=== PATIENT | female | born 1965 | race Caucasian/White ===

== ENCOUNTER → 2021-12-21 07:55 | Outpatient (CLI) | payer OTHER, SELFPAY ==
--- NOTE | 2021-12-21 08:01 | DI.MG.S_ITS ---
BILATERAL DIGITAL SCREENING MAMMOGRAM 3D/2D WITH CAD: 12/21/2021 CLINICAL: Routine screening. Family history of breast cancer. Comparison is made to exam dated: 08/24/2015, mammogram [facility], 09/06/2004 mammogram - [facility]. The tissue of both breasts is heterogeneously dense. This may lower the sensitivity of mammography. Current study was also evaluated with a Computer Aided Detection (CAD) system. No significant masses, calcifications, or other findings are seen in either breast. There has been no significant interval change. IMPRESSION: NEGATIVE There is no mammographic evidence of malignancy. A 1 year screening mammogram is recommended. Based on the Tyrer Cuzick model (a risk assessment model) the patient's lifetime risk is 10.0% and her 10 year risk is 3.7%. According to the ACR, ACS, and NCCN guidelines, an annual breast MRI exam along with mammogram is recommended if the patient's lifetime risk is 20% or greater. This exam was interpreted at Station ID: [id number]. NOTE: For mammograms, a report in lay terms will be sent to the patient. Approximately 15% of breast malignancies will not be visualized mammographically. In the management of a palpable breast mass, a negative mammogram must not discourage biopsy of a clinically suspicious lesion. Electronically Signed By: Thomas Navarro M.D. slc/:12/27/2021 14:25:02 letter sent: Normal Exam ACR BI-RADS Category 1: Negative 3341F
== END ==
PROVIDERS: Family Provider Family Medicine; PCP Family Medicine; Referring Provider Family Medicine; Visit Provider Family Medicine
DX: Z12.31 Encounter for screening mammogram for malignant neoplasm of breast (principal); Z80.3 Family history of malignant neoplasm of breast
CPT/HCPCS: 77063; 77067

== ENCOUNTER → 2022-12-05 16:44 | Outpatient (CLI) | payer OTHER, SELFPAY ==
--- NOTE | 2022-12-05 | DI.US.S_ITS ---
PROCEDURE: US ABDOMEN COMPLETE INDICATIONS: ELEVATED LFT'S TECHNIQUE: Real-time scanning was performed of the abdominal and retroperitoneal organs, with image documentation. COMPARISON: None. FINDINGS: Liver: Liver is normal in size and homogeneous in echotexture. Gallbladder: Unremarkable. Wall thickness is normal measuring 1.6 mm. Biliary ducts: Intrahepatic bile ducts are non-dilated. Extrahepatic bile duct caliber measures 0.6 mm. Normal is 6-7 mm or less in diameter, or 10 mm or less post-cholecystectomy. Pancreas: Visualized portions of the pancreas are sonographically normal. Spleen: Spleen is normal in size and homogeneous in echotexture. Kidneys: Kidneys are normal in size and echotexture. Right kidney measures 9.8 cm long; left kidney measures 10.5 cm long. No hydronephrosis or nephrolithiasis. No solid masses. Aorta: Visualized aorta is normal in caliber at less than 3 cm. Iliacs: Proximal common iliac arteries are normal in caliber at less than 2.5 cm. IVC: Intrahepatic inferior vena cava is patent. Miscellaneous: No free abdominal fluid. IMPRESSION: Liver is unremarkable. Dictated by: Joann Huynh M.D. on 12/06/2022 at 14:32 Approved by: Joann Huynh M.D. on 12/06/2022 at 14:33
== END ==
PROVIDERS: Family Provider Family Medicine; PCP Family Medicine; Referring Provider Family Medicine; Visit Provider Family Medicine
DX: R74.8 Abnormal levels of other serum enzymes (principal)
CPT/HCPCS: 76700

== ENCOUNTER → 2023-07-11 07:43 | Outpatient (CLI) | payer OTHER, SELFPAY ==
--- NOTE | 2023-07-11 | DI.MG.S_ITS ---
BILATERAL DIGITAL SCREENING MAMMOGRAM 3D/2D WITH CAD: 07/11/2023 CLINICAL: Routine screening. Comparison is made to exams dated: 12/21/2021 mammogram and 09/06/2004 mammogram - [facility]. Both breasts are heterogeneously dense, which may obscure small masses (category c / 51-75% glandular tissue). Current study was also evaluated with a Computer Aided Detection (CAD) system. There are benign vascular calcifications in both breasts. No significant masses, calcifications, or other findings are seen in either breast. There has been no significant interval change. IMPRESSION: BENIGN There is no mammographic evidence of malignancy. A 1 year screening mammogram is recommended. Based on the Tyrer Cuzick model (a risk assessment model) the patient's lifetime risk is 9.8% and her 10 year risk is 3.8%. According to the ACR, ACS, and NCCN guidelines, an annual breast MRI exam along with mammogram is recommended if the patient's lifetime risk is 20% or greater. This exam was interpreted at Station ID: [id number]. NOTE: For mammograms, a report in lay terms will be sent to the patient. Approximately 15% of breast malignancies will not be visualized mammographically. In the management of a palpable breast mass, a negative mammogram must not discourage biopsy of a clinically suspicious lesion. Electronically Signed By: Bernie bolaños/anisha:07/11/2023 16:22:49 letter sent: Normal Exam ACR BI-RADS Category 2: Benign Finding(s) 3342F
== END ==
PROVIDERS: Family Provider Family Medicine; PCP Family Medicine; Referring Provider Family Medicine; Visit Provider Family Medicine
DX: Z12.31 Encounter for screening mammogram for malignant neoplasm of breast (principal); R92.333 Mammographic heterogeneous density, bilateral breasts
CPT/HCPCS: 77063; 77067

== ENCOUNTER 2025-03-03 07:09 | Day surgery (SDC) | payer OTHER, SELFPAY ==
--- NOTE | 2025-03-03 | PATH_ITS ---
[facility] Accession Number: [id number] No. of containers..03 Tissue . 01 Material submitted: . PART A: colon - COLON, DESCENDING POLYP PART B: colon - SIGMOID POLYP X3 PART C: rectosigmoid junction - POLYP RECTAL SIGMOID JUNCTION . 01 Diagnosis: A. DESCENDING COLON POLYP: Tubular adenoma. . B. SIGMOID COLON POLYPS: Hyperplastic polyps (3 polyps removed). . C. RECTOSIGMOID JUNCTION POLYP: Traditional serrated adenoma. Negative for high-grade dysplasia or malignancy. [facility] 03/12/2025 1146 Local . 01 Electronically signed: . Jad Carrillo MD, PhD, Pathologist NPI- [id number] . 01 Gross description: . Received are three formalin-filled containers each lableed with the patient's name. . A. In a container labeled descending colon polyp, is one fragment of osorio, soft tissue which measures 0.3 x0.3 x 0.2 cm. The specimen is totally submitted in cassette A1. B. In a container labeled sigmoid polyp x3, are three fragments of osorio, soft tissue which range in size from 0.2 x 0.2 x 0.2 cm to 0.4 x 0.3 x 0.2 cm. All fragments are totally submitted in cassette B1. C. In a container labeled polyp rectal sigmoid junction, is one fragment of osorio, soft tissue which measures 0.5 x 0.4 x 0.3 cm. The specimen is totally submitted in cassette C1. ([id number]) /[facility] 03/10/2025 0856 Local . 01 Pathologist provided ICD-10: D12.4, D12.8 . 01 CPT . 893992, 690704, [id number] Specimen Comment: A courtesy copy of this report has been sent to [facility]ology Performed at: [address] [facility] [address] [place] [address], [place], [place] [id number] MD Blas Velez MD Phone: [phone]
--- NOTE | 2025-03-03 06:37 | PM.HP.IH.1 ---
History of Present Illness History of Present Illness Date Patient Seen: 03/03/25 Time Patient Seen: 06:37 Chief complaint: [facility] [place] Narrative: 59yo F presents for screening colonoscopy. +FIT, FH negative for colon cancer. First screening exam. Smoker Meds Home Medications and Allergies Home Medications ?Medication ?Instructions ?Recorded ?Confirmed ?Type atorvastatin 40 mg tablet 40 mg PO DAILY 01/19/25 01/19/25 History blood-glucose sensor (Dexcom G7 #1 ea 01/19/25 01/19/25 History Sensor device) insulin glargine 100 unit/mL 20 unit SUBCUT DAILY 01/19/25 01/19/25 History subcutaneous solution (Lantus U-100 Insulin) lisinopril 20 mg tablet 20 mg PO DAILY 01/19/25 01/19/25 History sodium,potassium,mag sulfates 17.5 See Rx Instructions PO .COMPLEX 01/30/25 Rx gram-3.13 gram-1.6 gram oral soln #354 mL (Suprep Bowel Prep Kit) Allergies Allergy/AdvReac Type Severity Reaction Status Date / Time INGREDIENT: NO KNOWN - NO Allergy Unknown Uncoded 01/19/25 13:52 KNOWN DRUG ALLERGY Exam Narrative Exam Narrative: Const General: comfortable Orientation: alert and oriented x3 Resp Effort & Inspection: normal respiratory effort and able to speak in complete sentences Cardio Rate: regular rate GI Palpation: soft (NT) Extrem General: no pedal edema and no calf tenderness Assessment & Plan Assessment and plan (1) Encounter for screening colonoscopy: Status: Acute Plan Plan screening colonoscopy, possible biopsy. The risks, benefits and options regarding the procedure were explained to the patient in detail. Risk discussion included but not limited to: bleeding, perforation, missed lesion, unable to reach cecum. The patient was encouraged to ask questions and they were answered to their satisfaction. The patient understands and is agreeable to proceed. Time-Based Coding :: [TOTAL MINUTES] spent with patient and on the chart (including review of chart, obtaining history, exam, reviewing outside data, placing orders, documenting exam and treatment plan, and counseling patient) on [DATE]. 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
--- NOTE | 2025-03-03 07:34 | EKG_ITS ---
[address] [address] Test Date: 2025-03-03 Pat Name: Miranda Sebastian Department: Room: Gender: Female [employer]: CUATE : 1965 Requested By: Order Number: [id number] Reading MD: Maury Sebastian Measurements Intervals [place] Rate: 95 P: 49 WI: 144 QRS: 50 QRSD: 84 T: 35 QT: 340 QTc: 427 Interpretive Statements Normal sinus rhythm Cannot rule out Anterior infarct , age undetermined Electronically Signed On 03-03-2025 17:28:33 PDT by Maury Sebastian
[2025-03-03] MEDS: LACTATED RINGERS 1,000 ML 42 ML IV (07:41)
[2025-03-03 07:45] VITALS: BP 129/68; PULSE 94; RESP 16; TEMP 36.2; O2SAT 99
--- NOTE | 2025-03-03 08:36 | P.OP.COLON_ITS ---
Operative Date/Time/Diagnoses Date of procedure: 03/03/25 Time of procedure: 09:15 Pre-op diagnosis: +FIT, first screening colonoscopy Post-op diagnosis: other (Polyps scattered throughout colon, numerous in rectum) Procedure & Clinicians Study performed: Colonoscopy with polypectomy Same procedure(s) as scheduled: Yes Indications: 59yo F, +FIT, first screening colonoscopy Surgeon: Frank Ge Anesthesia Type: MAC +/- Procedure Notes SCOAP/Timeout: Performed Procedure in detail: Colonoscopy Patient placed in left lateral recumbent position. Time out was performed. Procedural sedation was administered by anesthesia. Examination began with a thorough inspection of the perianal area. There was no evidence of fissures, fistulae, external hemorrhoids or cutaneous malignancy. The colonoscope was then placed into the rectum and the lumen was insufflated with carbon dioxide. The scope was carefully advanced forward. Ultimately the cecum was intubated and confirmed by identification of the ileocecal valve, the appendiceal orifice and the confluence of the taenia. The scope was then slowly withdrawn examining the colon thoroughly in all directions. In the rectum, retroflexion of the scope was performed for inspection of the distal rectum and anal canal. ?Significant colonoscopy findings: ?1. Quality of the preparation-good, [place] 2-3, improved with irrigation/suction ?2. Polyps throughout colon, mostly sessile 3-5mm polyps. 3. 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 3. Dominant adenomatous appearing pedunculated polyp (x1) at rectosigmoid bernadette ction, 1cm, removed with cold snare and retrieved for pathology 4. Several polyps (x3) in descending colon, 3-5mm, sessile, benign appearing, removed with cold snare or cold biopsy forceps and retrieved for pathology; similar polyps x 3 in sigmoid colon, one required clip for hemostatis Scope withdrawal time: 13 Findings: polyp(s) Specimen(s): other (polyps) Complications: none Impression: Multiple polyps throughout colon, dominant pedunculated polyp at rectosigmoid junction. Await pathology report Post-procedure Plan for aftercare: PACU then home Plan 5 year repeat screening pending pathology report Follow up: as needed Disposition: PACU
[2025-03-03 09:14] VITALS: BP 115/58; PULSE 85; RESP 16; TEMP 36.2; O2SAT 98
[2025-03-03 09:22] VITALS: BP 119/62; PULSE 85; RESP 16; O2SAT 98
[2025-03-03 09:26] VITALS: BP 151/71; PULSE 84; RESP 16; O2SAT 99
[2025-03-03 09:32] VITALS: BP 145/69; PULSE 73; RESP 16; O2SAT 98
== END 2025-03-03 09:50 | disposition home or self-care (01) ==
PROVIDERS: PCP Family Medicine; Referring Provider Surgery; Visit Provider Surgery
PROC: 0DJD8ZZ Inspection of Lower Intestinal Tract, Via Natural or Artificial Opening Endoscopic (ICD-10-PCS; CPT 45378; principal; 2025-03-03 08:15)
DX: Z12.11 Encounter for screening for malignant neoplasm of colon (principal); R19.5 Other fecal abnormalities; F17.210 Nicotine dependence, cigarettes, uncomplicated; E11.9 Type 2 diabetes mellitus without complications; Z79.4 Long term (current) use of insulin; R01.1 Cardiac murmur, unspecified; D12.4 Benign neoplasm of descending colon; K63.5 Polyp of colon; D12.7 Benign neoplasm of rectosigmoid junction
CPT/HCPCS: 45385; 45380; 82962; 93005; J2704